=== PATIENT | male | born 1945 | race Hispanic/Latino ===

== ENCOUNTER → 2019-03-24 | Outpatient (CLI) | payer OTHER, MEDICARE ==
[~2019-03-24] MED LIST: ALLO300T2 PO; ATOR10 PO; CLOP75TA32 PO; COLC0.6T70 PO; ESOM40CA54 PO; FINA5TAB41 PO; FURO40TA5 PO; METO25TA6 PO; NAPR-1180 PO; PARO-37 PO; PIPE3.3712 IV; POTA25TA13 PO; VALS80TA30 PO; VANC1PLA10 IV
== END | disposition home or self-care (01) ==
LOC: SHCH 09:30
PROVIDERS: ATTEND Internal Medicine Cardiovascular Disease
DX: I11.9 Hypertensive heart disease without heart failure (principal); I08.2 Rheumatic disorders of both aortic and tricuspid valves
CPT/HCPCS: 93306

== ENCOUNTER → 2022-05-20 | Outpatient (CLI) | payer OTHER, MEDICARE ==
[~2022-05-20] MED LIST changes: -COLC0.6T70 PO; +COLC0.6T73 PO
== END | disposition home or self-care (01) ==
LOC: SHCH 10:34
PROVIDERS: ATTEND Internal Medicine Cardiovascular Disease
DX: I08.8 Other rheumatic multiple valve diseases (principal); I27.20 Pulmonary hypertension, unspecified; I42.0 Dilated cardiomyopathy; E78.5 Hyperlipidemia, unspecified
CPT/HCPCS: 93306

== ENCOUNTER → 2022-05-23 | Outpatient (CLI) | payer OTHER, MEDICARE ==
[2022-05-23 12:36] LABS: POTASSIUM 4.6 mmol/L (3.5-5.1)
== END | disposition home or self-care (01) ==
LOC: LAB 09:04
PROVIDERS: ATTEND Physician Assistant
DX: I42.0 Dilated cardiomyopathy (principal)
CPT/HCPCS: 36415; 80048; 83735; 83880

== ENCOUNTER → 2022-06-11 | Outpatient (CLI) | payer OTHER, MEDICARE | END | disposition home or self-care (01) | LOC: RAH 09:04 | PROVIDERS: ATTEND Family Medicine | DX: G91.9 Hydrocephalus, unspecified (principal); W19.XXXA Unspecified fall, initial encounter | CPT/HCPCS: 70450 ==

== ENCOUNTER → 2022-10-23 | Outpatient (CLI) | payer OTHER, MEDICARE ==
[2022-10-23 12:12] LABS: CREATININE 1.6 mg/dL (0.5-1.5); POTASSIUM 4.4 mmol/L (3.5-5.1)
== END | disposition home or self-care (01) ==
LOC: LAB 10:51
PROVIDERS: ATTEND Physician Assistant
DX: I50.22 Chronic systolic (congestive) heart failure (principal); N18.30 Chronic kidney disease, stage 3 unspecified; I95.2 Hypotension due to drugs; T50.905A Adverse effect of unspecified drugs, medicaments and biological substances, initial encounter; Y92.89 Other specified places as the place of occurrence of the external cause
CPT/HCPCS: 36415; 80048

== ENCOUNTER → 2024-02-26 | Outpatient (CLI) | payer OTHER, MEDICARE ==
[~2024-02-26] MED LIST changes: -ESOM40CA54 PO; +ESOM40CA66 PO
[2024-02-26 16:45] LABS: CREATININE 1.1 mg/dL (0.5-1.3); MAGNESIUM 1.5 mg/dL (1.80-2.40); POTASSIUM 3.7 mmol/L (3.5-5.1)
== END | disposition home or self-care (01) ==
LOC: LAB 13:29
PROVIDERS: ATTEND Physician Assistant
DX: I10 Essential (primary) hypertension (principal); E78.5 Hyperlipidemia, unspecified
CPT/HCPCS: 36415; 80048; 83735

== ENCOUNTER → 2024-03-25 | Outpatient (CLI) | payer OTHER, MEDICARE ==
[2024-03-25 12:35] LABS: CREATININE 1.3 mg/dL (0.5-1.3); MAGNESIUM 1.7 mg/dL (1.80-2.40); POTASSIUM 3.9 mmol/L (3.5-5.1)
== END | disposition home or self-care (01) ==
LOC: LAB 10:15
PROVIDERS: ATTEND Physician Assistant
DX: I34.0 Nonrheumatic mitral (valve) insufficiency (principal); I42.0 Dilated cardiomyopathy
CPT/HCPCS: 36415; 80048; 83735

== ENCOUNTER → 2024-06-23 | Outpatient (CLI) | payer OTHER, MEDICARE | END | disposition home or self-care (01) | LOC: RAH 11:32 | PROVIDERS: ATTEND Internal Medicine Cardiovascular Disease | DX: I42.0 Dilated cardiomyopathy (principal) | CPT/HCPCS: 93306; 93356 ==

== ENCOUNTER 2024-09-28 05:58 | Day surgery (SDC) | payer OTHER, MEDICARE ==
--- NOTE | 2024-09-24 13:11 | EKG ---
[facility] Test Date: 2024-09-24 Test Time: 13:58:43 Pat Name: ONEIDA SAUCEDA Department: [facility] Room: Gender: M Bull F[employer] Player: [id number] : 1945 Requested By: James HANLEY Order Number: [id number] Reading MD: Grace Álvarez Measurements Intervals Walker Rate: 81 P: 46 AL: 155 QRS: 217 QRSD: 160 T: 1 QT: 441 QTc: 512 Interpretive Statements A-V dual-paced rhythm with some inhibition No previous ECG available for comparison Electronically Signed On 09-25-2024 08:45:55 [employer] by Grace Álvarez Please click the below link to view image of tracing.
[2024-09-24 13:32] VITALS: BP 111/67; PULSE 85; RESP 18; TEMP 97.7
[2024-09-24 13:43] LABS: BASOPHILS # (AUTO) 0.03 K/uL (0.00-0.20); BASOPHILS % (AUTO) 0.7 % (0.0-5.0); EOSINOPHILS # (AUTO) 0.16 K/uL (0.00-0.70); EOSINOPHILS % (AUTO) 3.6 % (0.0-8.0); HEMATOCRIT 39.2 % (42-54); IMMATURE GRANULOCYTE ABSOLUTE 0.01 K/uL (0-1); LYMPHOCYTES # (AUTO) 1.6 K/uL (1.0-4.8); LYMPHOCYTES % (AUTO) 35.5 % (21.0-51.0); MEAN CORPUSCULAR HEMOGLOBIN 26.7 pg (27.0-33.0); MEAN CORPUSCULAR HGB CONC 31.6 g/dL (32.0-36.0); MEAN CORPUSCULAR VOLUME 84.3 fL (79-99); MONOCYTES # (AUTO) 0.4 K/uL (0.1-1.0); MONOCYTES % (AUTO) 8.2 % (3.0-13.0); NEUTROPHILS # (AUTO) 2.3 K/uL (1.8-7.7); NEUTROPHILS % (AUTO) 51.8 % (40.0-77.0); PLATELET COUNT (AUTO) 136 K/uL (130-400); RED BLOOD CELL COUNT(AUTO) 4.65 MIL/uL (4.50-6.20); RED CELL DISTRIBUTION WIDTH 18.7 % (11.0-15.5); WHITE BLOOD COUNT (AUTO) 4.4 K/uL (4.8-10.8)
[2024-09-24 13:51] LABS: CREATININE 1.3 mg/dL (0.5-1.3); POTASSIUM 4.9 mmol/L (3.5-5.1)
[2024-09-24 13:54] LABS: INR 1.06 (0.85-1.15); PROTHROMBIN TIME 11.2 SEC (9.6-11.6)
[2024-09-24 13:56] LABS: PARTIAL THROMBOPLASTIN TIME 28.2 SEC (26.3-35.5)
[~2024-09-28] VITALS: Ht 172.7 cm; Wt 77.8 kg
[2024-09-28] VITALS (12 sets, daily range): BP systolic 98–119; BP diastolic 61–75; PULSE 80–89; RESP 12–20; TEMP 96.6–97.2
[~2024-09-28 05:58] MED LIST changes: +ASPI-1443 PO; +ESCI-8 PO; -ESOM40CA66 PO; -FURO40TA5 PO; +LORA10TA7 PO; +LOSA25TA41 PO; +MAGN400C PO; -METO25TA6 PO; +MIDO10TA3 PO; -NAPR-1180 PO; +PANT40TA54 PO; -PARO-37 PO; -PIPE3.3712 IV; -POTA25TA13 PO; +SPIR25TA6 PO; +TAMS-1 PO; +TORS10TA18 PO; -VALS80TA30 PO; -VANC1PLA10 IV
--- NOTE | 2024-09-28 06:55 | NUR ---
consult: dr. verónica macias made aware of patient has not taking plavix for one month, ok to proceed with procedure.
[2024-09-28] MEDS: 0.9%NACL 1000ML 1,000 ML IV SCH (07:01)
[2024-09-28] MEDS ORDERED: LIDOCAINE HCL 1% MDV 50ML VIAL ONE (07:21)
[2024-09-28] MEDS ORDERED: BUPIvacaine/PF 0.25% 30ML VIAL IJ ONE (07:21)
[2024-09-28] MEDS ORDERED: ceFAZolin SODIUM 1 GM VIAL ONE (07:39)
[2024-09-28] MEDS ORDERED: FENTanyl CITRate PF 50 MCG/1 ML 2ML VIAL ONE (07:45)
[2024-09-28] MEDS ORDERED: MIDAZOLAM HCL 1 MG/ML 2ML VIAL ONE ×3 (07:46→08:42)
[2024-09-28] MEDS ORDERED: acetaMINOPHEN 325 MG TAB PO PRN ×2 (09:00)
[2024-09-28] MEDS ORDERED: ondanSETRON 4MG INJ IV PRN (09:00)
--- NOTE | 2024-09-28 09:30 | NUR ---
DRESSING: PRESSURE DRESSING TO LEFT UPPER CHEST DRY/INTACT WITH ICE BAG IN PLACE.
--- NOTE | 2024-09-28 09:45 | NUR ---
DRESSING: PRESSURE DRESSING TO LEFT UPPER CHEST DRY/INTACT WITH ICE BAG IN PLACE.
--- NOTE | 2024-09-28 10:00 | NUR ---
DRESSING: PRESSURE DRESSING TO LEFT UPPER CHEST DRY/INTACT WITH ICE BAG IN PLACE.
--- NOTE | 2024-09-28 10:15 | NUR ---
DRESSING: PRESSURE DRESSING TO LEFT UPPER CHEST DRY/INTACT WITH ICE BAG IN PLACE.
--- NOTE | 2024-09-28 10:30 | NUR ---
hitchcock catheter: emptied 725 cc yellow color urine.
--- NOTE | 2024-09-28 10:30 | NUR ---
DRESSING: PRESSURE DRESSING TO LEFT UPPER CHEST DRY/INTACT WITH ICE BAG IN PLACE.
--- NOTE | 2024-09-28 11:00 | NUR ---
DRESSING: PRESSURE DRESSING TO LEFT UPPER CHEST DRY/INTACT WITH ICE BAG IN PLACE.
--- NOTE | 2024-09-28 11:30 | NUR ---
DRESSING: DRESSING TO LEFT UPPER CHEST REMAINS DRY/INTACT WITH ICE BAG IN PLACE.
--- NOTE | 2024-09-28 12:00 | NUR ---
DRESSING: DRESSING TO LEFT UPPER CHEST REMAINS DRY/INTACT WITH ICE BAG IN PLACE.
--- NOTE | 2024-09-28 12:30 | NUR ---
MITTAL CATHETER: EMPTIED 800 CC CLEAR YELLOW COLOR URINE.
--- NOTE | 2024-09-28 13:00 | NUR ---
DRESSING: PRESSURE DRESSING TO LEFT UPPER CHEST REMAINS DRY/INTACT WITH ICE BAG IN PLACE.
--- NOTE | 2024-09-28 13:45 | NUR ---
DRESSING: PRESSURE DRESSING REMOVED. TEGADERM DRESSING DRY/INTACT WITH NO ACTIVE BLEEDING PRESENT. NO REDNESS/SWELLING NOTED TO SURROUNDING AREA.
[2024-09-28] MEDS: ceFAZolin SODIUM 1 GM VIAL IVPB SCH (13:52)
--- NOTE | 2024-09-28 14:00 | NUR ---
MITTAL CATHETER: EMPTIED 500 CC CLEAR YELLOW COLOR URINE FROM MITTAL
--- NOTE | 2024-09-28 14:10 | NUR ---
DRESSING: DRESSING DRY/INTACT WITH NO ACTIVE BLEEDING PRESENT. NO REDNESS/SWELLING NOTED TO SURROUNDING AREA.
== END 2024-09-28 14:12 | disposition home or self-care (01) ==
LOC: DAH 05:58
PROVIDERS: ATTEND Internal Medicine Cardiovascular Disease
DX: Z45.010 Encounter for checking and testing of cardiac pacemaker pulse generator [battery] (principal); I42.0 Dilated cardiomyopathy; I11.0 Hypertensive heart disease with heart failure; I50.9 Heart failure, unspecified; I08.0 Rheumatic disorders of both mitral and aortic valves; E83.42 Hypomagnesemia; E66.9 Obesity, unspecified; E78.5 Hyperlipidemia, unspecified; Z95.810 Presence of automatic (implantable) cardiac defibrillator; Z79.899 Other long term (current) drug therapy; Z68.25 Body mass index [BMI] 25.0-25.9, adult; Z79.82 Long term (current) use of aspirin
CPT/HCPCS: 80048; 85025; 85610; 85730; 36415; 93005; 33264; C1882; J3010; J0690 ×2; J0665; J2250 ×3; J3490; A4215; A4222; A4221; A4663; A4216; A4606; A4223 ×3; 99156; 99157